=== PATIENT | female | born 1985 | race Caucasian/White ===

== ENCOUNTER → 2017-03-10 | Outpatient (CLI) | payer OTHER ==
[~2017-03-10] MED LIST: APAP325 MG PO; BACTRIM 400-801 TA1 PO; LEVAQUIN PO; MONONESSA PO; PERCOCET10 PO; TRANSDERM-1 PATCH .7 TOP; ZYVOX600 MG PO
--- NOTE | ~2017-03-10 | CR63 ---
[facility] A Service of [facility] & [facility] RADIOLOGY TEXT RESULTS PATIENT: MAREN WEEKS LOCATION: [facility] : [birth year] UNIT #: [id number] AGE: [address]: Yoel Tinsley MD SEX: F ORDER DR: [id number] [address] [address] [id number] O MR#: [id number] Acc #: [id number] NAME: MAREN WEEKS : 1985 SEX: F STUDY DATE/TIME: 03/10/2017 15:28 UNIT: [facility] ROOM: STUDY DESCRIPTION: CR Chest 2 View Attending Physician: Yoel Tinsley M.D. Referring Physician: Yoel Tinsley M.D. Ordering Physician: Yoel Tinsley M.D. Primary Care Physician: José Luis Leblanc M.D. MEDICAL IMAGING REPORT This report is preliminary unless electronic signature is present. EXAM 2-view chest 03/10/2017 HISTORY 31-year-old female with right sided chest pain radiating to the right shoulder for 3 weeks. COMPARISON Chest 08/03/2015 FINDINGS 2 views of the chest demonstrate clear lungs. No pleural effusion or pneumothorax. The heart size and mediastinum are normal. Pulmonary vasculature normal. IMPRESSION No acute cardiopulmonary findings. Dictated by... Beto Jean-Baptiste M.D. THIS IS AN ELECTRONICALLY VERIFIED REPORT Beto Jean-Baptiste M.D. at 03/11/2017 9:06 AM AISHA/jaord TD: 03/10/2017 21:02 JOB #: [id number] MEDICAL IMAGING REPORT Page 1 of 1
== END | disposition home or self-care (01) ==
LOC: SRAD 15:01
DX: R07.9 Chest pain, unspecified (principal)
CPT/HCPCS: 71020